=== PATIENT | female | born 1995 | race Caucasian/White ===

== ENCOUNTER 2018-09-11 10:30 | Emergency (ER) | payer OTHER ==
[~2018-09-11] VITALS: Ht 157.5 cm; Wt 79.0 kg
[~2018-09-11 10:30] MED LIST: IBUP-1542 PO
[2018-09-11 10:31] VITALS: Ht 157.5 cm; Wt 79.0 kg
[2018-09-11] MEDS ORDERED: LORAZEPAM 2 MG INJ IV STA (10:48)
[2018-09-11 13:00] VITALS: BP 97/66; PULSE 84; RESP 18
--- NOTE | 2018-09-11 13:23 | ERD ---
ER Documentation Chief Complaint Chief Complaint SEIZURE, NO MEDS X 5 MOS, LAST SEIZURE 1 1/2 YEAR AGO, HIT HEAD HPI Patient is a 23-year-old female with seizures who presents with a seizure. The patient started with seizure at 9:02 AM and it lasted 5 minutes. She was shaking. She is not currently on seizure medicines as she was taken off seizure medicines by her doctor. She did fall and hit the back of her head and has a lump to the posterior left occiput. Upon review of old medical records this is the patient's fourth visit to the ER since 2013. She does have a primary doctor. ROS All systems reviewed and are negative except as per history of present illness. Medications Home Meds Discontinued Scripts Ibuprofen* (Motrin*) 600 Mg Tab, 600 MG PO Q8, #30 Prov:ROBEL DAVIS 08/18/14 Allergies Allergies: Coded Allergies: No Known Allergy (Unverified , 09/11/18) PMhx/Soc History of Surgery: No Anesthesia Reaction: No Hx Neurological Disorder: Yes (seizures) Hx Respiratory Disorders: No Hx Cardiac Disorders: No Hx Psychiatric Problems: No Hx Miscellaneous Medical Probl: No Hx Alcohol Use: No Hx Substance Use: No Hx Tobacco Use: No Smoking Status: Never smoker FmHx Family History: No diabetes Physical Exam Vitals Vital Signs Date Temp Pulse Resp B/P (MAP) Pulse Ox O2 O2 Flow FiO2 Time Delivery Rate 09/11/18 84 18 97/66 (76) 98 Room Air 13:00 09/11/18 98.1 95 18 107/59 99 10:31 (75) Physical Exam Const: No acute distress Head: Hematoma to the posterior left occiput Eyes: Normal Conjunctiva ENT: Normal External Ears, Nose and Mouth. Neck: Full range of motion. No meningismus. Resp: Clear to auscultation bilaterally Cardio: Regular rate and rhythm, no murmurs Abd: Soft, non tender, non distended. Normal bowel sounds Skin: No petechiae or rashes Back: No midline or flank tenderness Ext: No cyanosis, or edema Neur: Awake and alert Psych: Normal Mood and Affect Result Diagram: 09/11/18 1107 09/11/18 1107 Results 24 hrs Laboratory Tests Test 09/11/18 11:07 White Blood Count 6.1 10^3/ul Red Blood Count 4.16 10^6/ul Hemoglobin 10.7 g/dl Hematocrit 33.8 % Mean Corpuscular Volume 81.3 fl Mean Corpuscular Hemoglobin 25.7 pg Mean Corpuscular Hemoglobin Concent 31.7 g/dl Red Cell Distribution Width 15.5 % Platelet Count 273 10^3/UL Mean Platelet Volume 11.1 fl Immature Granulocytes % 0.200 % Neutrophils % 71.4 % Lymphocytes % 20.9 % Monocytes % 5.9 % Eosinophils % 1.1 % Basophils % 0.5 % Nucleated Red Blood Cells % 0.0 /100WBC Immature Granulocytes # 0.010 10^3/ul Neutrophils # 4.4 10^3/ul Lymphocytes # 1.3 10^3/ul Monocytes # 0.4 10^3/ul Eosinophils # 0.1 10^3/ul Basophils # 0.0 10^3/ul Nucleated Red Blood Cells # 0.0 10^3/ul Sodium Level 143 mmol/L Potassium Level 4.0 mmol/L Chloride Level 108 mmol/L Carbon Dioxide Level 26 mmol/L Anion Gap 9 Blood Urea Nitrogen 13 mg/dl Creatinine 0.57 mg/dl Est Glomerular Filtrat Rate mL/min > 60 mL/min Glucose Level 86 mg/dl Calcium Level 9.3 mg/dl Current Medications Medications Dose Sig/Mekhi Start Time Status Last (Trade) Ordered Route PRN Stop Time Admin Dose Reason Admin Lorazepam 0.5 mg ONCE STAT 09/11/18 DC 09/11/18 (Ativan) IV 10:48 09/11/18 11:03 10:49 Procedures/MDM CT brain negative per radiology. Patient is a 23-year-old female with seizures who presents with acute seizure. I doubt status epilepticus. Laboratory studies are basically normal. CT scan of the brain was negative for bleed or fracture. Patient will be discharged but will need to follow-up with her primary doctor within 1 week to discuss if she needs to be back on seizure medications. The patient was given Ativan 0.5 mg IV to prevent further seizure today. Departure Diagnosis: Primary Impression: Seizure Condition: Fair Patient Instructions: Seizure, Recurrent [Adult] Referrals: Your doctor Additional Instructions: Llame al doctor nombrado danny (Referral Sources) MAANA y holli jessica FRANK PARA DENTRO DE JESSICA SEMANA. Dgale a la secretaria que nosotros le instruimos hacer esta frank.Avise o llame si alexander condicin se empeora antes de la frank. TAMIR COWAN MD Sep 11, 2018 13:23
== END 2018-09-11 13:00 | disposition home or self-care (01) ==
LOC: E/R 10:30
DX: R56.9 Unspecified convulsions (principal)
CPT/HCPCS: 70450; 80048; 85025; 96374; J2060; Z7502